=== PATIENT | male | born 1950 | race Caucasian/White ===

== ENCOUNTER → 2017-05-19 | Outpatient (CLI) | payer MEDICARE ==
[~2017-05-19] MED LIST: DICY10CA3 PO; HYDR25TA9 PO; LOSA100T6 PO; OMEP20TA8 PO; PRAV40TA2 PO
--- NOTE | 2017-05-19 07:34 | RAD ---
Indication: Abdominal pain. The pancreas is unremarkable. The IVC is unremarkable. Aorta is nonaneurysmal. The liver does contain several cysts. A cyst in the left lobe is approximately 2.8 cm in diameter. Cyst in the right lobe is 4.3 cm in diameter. The gallbladder is without stones or sludge. No wall thickening or pericholecystic fluid is identified. No biliary ductal dilatation is seen. The spleen is normal in size. The right and left kidneys are unremarkable. There is no ascites. Evaluation of the left lower quadrant at the area of the patient's pain was also performed. There is a small fluid collection in the left lower quadrant region measuring 2.6 x 1.6 x 1.0 cm, indeterminate. Impression: 1. Hepatic cysts. 2. Small nonspecific fluid collection in the left lower quadrant. No other significant abnormality is seen.
== END | disposition home or self-care (01) ==
LOC: US 06:21
PROVIDERS: ATTEND Family Medicine
DX: K76.89 Other specified diseases of liver (principal)
CPT/HCPCS: 76700

== ENCOUNTER → 2017-05-21 | Outpatient (CLI) | payer MEDICARE ==
[~2017-05-21] MED LIST changes: +CONTRAST GIVEN MC PRN; +IOHEXOL 240 MG/ML 50ML VIAL. PO ONE; +IOHEXOL 300 MG/ML 100ML VIAL. IV ONE
--- NOTE | 2017-05-21 13:15 | KCIC ---
CT abdomen and pelvis with contrast Indication: . Left lower quadrant pain. Left groin pain. Diverticulitis. Hernia. Symptoms for 2 weeks.. Technique: Intravenous contrast and oral contrast are administered. Comparison:None available Exposure: One or more of the following individualized dose reduction techniques were utilized for this examination: 1. Automated exposure control 2. Adjustment of the mA and/or kV according to patient size 3. Use of iterative reconstruction technique. FINDINGS: Lower thorax: Partially visualized tiny noncalcified nodule in the anterior right lung base measures 3 mm. Pneumoperitoneum:No gross pneumoperitoneum. Liver: Low-density lesion identified in the upper right lobe measures 4.0 cm diameter and measures water density compatible with a cyst. Smaller cysts identified in the left lobe. Several additional tiny lesions, too small to characterize. Spleen: Unremarkable Pancreas: Unremarkable Kidneys:Unremarkable Adrenals:No evidence of mass. Gallbladder: No calcified stone Aorta: Abdominal aorta is nonaneurysmal Lymph nodes: No significant enlargement GI tract: Very small hiatal hernia. No bowel obstruction. Scattered small colonic diverticula. No evidence of acute pericolonic inflammatory type change. Appendix:Visualized, appears within normal limits. Ascites: No gross ascites. The prostate gland is enlarged, measuring about 6.1 cm transverse. This indents the posteroinferior urinary bladder. Bones: Multilevel spondylosis mild/moderate spinal stenosis noted in the lumbar spine. Mild right convexity lumbar scoliosis. Primary hip osteoarthritis. There is a small subcutaneous nodule in the posterior right back, just to the right of midline, located just deep to the skin layer. This measures 22 mm diameter. This is located at the L1-2 level. There is a small fat-containing left inguinal hernia. IMPRESSION: 1. Multiple liver lesions, most likely cysts. 2. No evidence of acute abnormality in the abdomen or pelvis. 3. Prostatomegaly. 4. Lumbar spondylosis and stenosis. 5. Small nonspecific superficial subcutaneous mass in the back, just to the right of midline. This could represent a sebaceous cyst. Electronically signed by: Jeff Hart MD (05/21/2017 1:12 PM)
== END | disposition home or self-care (01) ==
LOC: KCIC CT 09:12
PROVIDERS: ATTEND Physician Assistant
DX: K76.9 Liver disease, unspecified (principal); N40.0 Benign prostatic hyperplasia without lower urinary tract symptoms; K46.9 Unspecified abdominal hernia without obstruction or gangrene; R91.1 Solitary pulmonary nodule
CPT/HCPCS: 74177; 82565; Q9966; Q9967

== ENCOUNTER 2017-06-07 06:24 | Day surgery (SDC) | payer MEDICARE ==
[~2017-06-07] VITALS: Ht 190.5 cm; Wt 90.7 kg
[~2017-06-07 06:24] MED LIST changes: +ASPI-630 PO; -CONTRAST GIVEN MC PRN; +DICL50TA4 PO; +GLUC1CAP48 PO; -IOHEXOL 240 MG/ML 50ML VIAL. PO ONE; -IOHEXOL 300 MG/ML 100ML VIAL. IV ONE; +MULT1TAB52 PO; +OMEG1CAP27 PO; +POLY17PO29 PO
[2017-06-07] MEDS ORDERED: PROCHLORPERAZINE 10 MG/2 ML VIAL. IV PRN (07:00)
[2017-06-07] MEDS ORDERED: IV RINGERS,LACTATED 1000ML 1,000 ML IV SCH (07:00)
[2017-06-07] MEDS ORDERED: HYDROmorphone 2 MG/ML VIAL IV PRN (07:00)
[2017-06-07] MEDS ORDERED: MORPHINE SULFATE 2 MG/ML DISP.SYRIN. IV PRN (07:00)
[2017-06-07] MEDS ORDERED: LIDOCAINE 1% 1 ML SYRINGE. ID PRN (07:00)
[2017-06-07] MEDS ORDERED: fentaNYL PF VIAL 100 MCG/2 ML VIAL IV PRN ×2 (07:00)
[2017-06-07] MEDS ORDERED: ONDANSETRON PF 4 MG/2 ML VIAL. IV PRN (07:00)
[2017-06-07] MEDS ORDERED: fentaNYL PF VIAL 100 MCG/2 ML VIAL ONE (07:18)
[2017-06-07] MEDS ORDERED: ROCURONIUM 50 MG/5 ML VIAL. ONE (07:18)
[2017-06-07] MEDS ORDERED: DEXAMETHASONE SOD PHOS 20 MG/5 ML VIAL. ONE (07:18)
[2017-06-07] MEDS ORDERED: PROPOFOL 20 ML IV ONE ×2 (07:18→08:55)
[2017-06-07] MEDS ORDERED: LIDOCAINE 2% PF Vial for OR 5 ML VIAL. ONE (07:18)
[2017-06-07] MEDS ORDERED: BUPIVACAINE-EPI 0.25%-1:200000 50 ML VIAL. ONE (07:32)
[2017-06-07] MEDS ORDERED: MIDAZOLAM HCL/PF 2 MG/2 ML VIAL. ONE (07:55)
[2017-06-07] MEDS ORDERED: ONDANSETRON PF 4 MG/2 ML VIAL. ONE (08:32)
[2017-06-07] MEDS ORDERED: GLYCOPYRROLATE 1 MG/5 ML VIAL. ONE (08:33)
[2017-06-07] MEDS ORDERED: NEOSTIGMINE METHYLSULFATE 5 MG/5 ML SYRINGE. ONE (08:33)
[2017-06-07] MEDS ORDERED: DESFLURANE 61 TO 120 MINUTES IH ONE (08:36)
[2017-06-07] MEDS ORDERED: KETOROLAC 30 MG/ML INJ FOR OR. INJ ONE (08:44)
[2017-06-07] MEDS ORDERED: ePHEDrine PF IN SALINE 50 MG/5 ML DISP.SYRIN IV ONE (08:47)
--- NOTE | 2017-06-07 08:56 | PDOC4 ---
Operative Note Operative Note Date: 06/07/2017 Preoperative diagnosis: Left inguinal hernia Postoperative diagnosis: Same Procedure: Robotic-assisted laparoscopic left inguinal hernia repair with mesh Surgeon: Milton Description: Patient is a 66-year-old male with complaints of left groin bulge with pain, procedure of robotic-assisted laparoscopic left inguinal hernia repair with mesh was explained to the patient detail all risks benefits were also discussed including bleeding infection injury to intra-abdominal contents possibly necessitating further or open operations. Patient seemed understanding table verbal and written consent had procedure performed. Patient was taken to the operating room placed in the supine position general anesthesia was initiated once patient was sleeping and intubated he was then placed in low lithotomy positioning his abdomen was prepped and draped usual sterile fashion using ChloraPrep. Area at the umbilicus was injected with quarter percent Marcaine with epinephrine and a small incision was made left blade scalpel. A varies needle was placed and a pneumoperitoneum was achieved. A 8 mm da Joao port was then placed and a camera placed within the abdomen which was inspected , no other abnormalities were noted other than a left inguinal hernia. At this point 2 more 8 mm ports were placed under direct visualization one in the left mid abdomen and one in the right mid abdomen. At this point the dementia robot was brought in and docked to the ports. The surgeon went to the robotic console using a grasper and Endo Karey scissors the peritoneum over the left groin was incised and a propagated as the peritoneum was bluntly and sharply dissected off of the abdominal wall the hernia sac was then reduced. Using program mesh mesh was then placed over the hernia defect on the floor of the groin area over in the defect the peritoneum was then closed over the mesh using a running V lock suture. Once this was complete the ports were undocked and the da Joao robot removed. Incisions at the port sites closed with 40 septic Monocryl Mastisol Steri-Strips and Band-Aids were applied as dressing. Patient was awakened and extubated in the operating room taken to recovery in stable condition all sponge and instrument counts listed as correct. Estimate blood loss 10 mL MASON VOGEL MD Jun 07, 2017 08:56
--- NOTE | 2017-06-07 09:10 | DISCH ---
DISCHARGE INSTRUCTIONS Condition on Discharge Condition on Discharge: Stable Activity After Discharge Activity Instructions for Disc: Avoid exertion Other activity instructions: No lifting >20lbs for 2 weeks Diet after Discharge Diet after Discharge: Regular Wound Incision Care Other wound/incision instructi: May shower in 24 hours Contacting the after DC Call your doctor for: If your condition worsens Follow-Up Follow up with: Dr Vogel in 2 weeks MASON VOGEL MD Jun 07, 2017 09:10
[2017-06-07] MEDS ORDERED: OXYC-323 PO (09:34)
[2017-06-07] MEDS ORDERED: oxyCODONE/APAP 5/325 1 TAB TABLET PO PRN (09:45)
[2017-06-07 10:10] VITALS: BP 175/77
== END 2017-06-07 10:30 | disposition home or self-care (01) ==
LOC: SURG 06:24
PROVIDERS: ATTEND Surgery
DX: K40.90 Unilateral inguinal hernia, without obstruction or gangrene, not specified as recurrent (principal); E78.00 Pure hypercholesterolemia, unspecified; F17.200 Nicotine dependence, unspecified, uncomplicated; I10 Essential (primary) hypertension; K21.9 Gastro-esophageal reflux disease without esophagitis; M19.019 Primary osteoarthritis, unspecified shoulder; Z72.89 Other problems related to lifestyle; Z88.2 Allergy status to sulfonamides
CPT/HCPCS: 49650; C1781; J1100; J1885; J2001; J2250; J2405; J2704; J2710; J3010; J3490; J7120

== ENCOUNTER → 2017-12-24 | Outpatient (CLI) | payer MEDICARE | END | disposition home or self-care (01) | LOC: ECHO 07:26 | DX: I49.3 Ventricular premature depolarization (principal); I07.1 Rheumatic tricuspid insufficiency; I10 Essential (primary) hypertension | CPT/HCPCS: 78452; 93017; 93306; 96374; 96376; A9500 ==

== ENCOUNTER → 2019-10-27 | Outpatient (CLI) | payer MEDICARE ==
[~2019-10-27] MED LIST changes: +HYDR-2145 PO; -HYDR25TA9 PO; +LOSA100T14 PO; -LOSA100T6 PO; +OXYC1TAB15 PO
--- NOTE | 2019-10-27 10:47 | CARD ---
MR#: [id number] Date of Study: 10/27/2019 Ordering Physician: JUJU FLOYD, Referring Physician: JUJU FLOYD, Tech: Margy Muñiz [facility] APPROVED REPORT EXAM: Two-dimensional and M-mode echocardiogram with Doppler and color Doppler. Other Information Quality : Good Rhythm : PVC's INDICATION Arrhythmia RISK FACTORS Hypertension Hyperlipidemia 2D DIMENSIONS RVDd3.0 (2.9-3.5cm)Left Atrium(2D)3.3 (1.6-4.0cm) IVSd0.9 (0.7-1.1cm)Aortic Root(2D)2.9 (2.0-3.7cm) LVDd5.1 (3.9-5.9cm)LVOT Diameter2.1 (1.8-2.4cm) PWd0.9 (0.7-1.1cm)LVDs3.1 (2.5-4.0cm) FS (%) 38.7 %SV85.4 ml LVEF(%)60.0 (>50%) Aortic Valve AoV Peak Chip.142.1cm/sAoV VTI27.8cm AO Peak GR.8.1mmHgLVOT Peak Chip.101.8cm/s AO Mean GR.4mmHgAVA (VMAX)2.52cm2 AI P 1/2 [id number] Mitral Valve MV E Gnwmwzuv36.6cm/sMV DECEL [id number] MV A Tdvakcmq43.4cm/sE/A Ratio0.8 Tricuspid Valve TR P. Zoefurfm756ba/sRAP VDRJVPDG8zuRj TR Peak Gr.43szIdDNFU16bwIi Pulmonary Vein S1 Rjyemage35.9cm/sD2 Uymfvvll50.8cm/s LEFT VENTRICLE The left ventricle is normal size. There is normal left ventricular wall thickness. The left ventricu lar systolic function is normal. The Ejection Fraction is 55-60%. There is normal LV segmental wall m otion. Transmitral Doppler flow pattern is Grade I-abnormal relaxation pattern. RIGHT VENTRICLE The right ventricle is normal size. The right ventricular systolic function is normal. ATRIA The left atrium size is normal. The right atrium size is normal. The interatrial septum is intact wit h no evidence for an atrial septal defect or patent foramen ovale as noted on 2-D or Doppler imaging. AORTIC VALVE The aortic valve is mildly thickened but opens well. Doppler and Color Flow revealed trace aortic reg urgitation. There is no significant aortic valvular stenosis. MITRAL VALVE The mitral valve is normal in structure and function. There is no evidence of mitral valve prolapse. There is no mitral valve stenosis. Doppler and Color-flow revealed trace mitral regurgitation. TRICUSPID VALVE The tricuspid valve is normal in structure and function. Doppler and Color Flow revealed mild tricusp id regurgitation. There is mild pulmonary hypertension. The PA pressure was estimated at 37 mmHg. The re is no tricuspid valve stenosis. PULMONIC VALVE The pulmonary valve is normal in structure and function. Doppler and Color Flow revealed mild pulmoni c valvular regurgitation. There is no pulmonic valvular stenosis. GREAT VESSELS The aortic root is normal in size. The ascending aorta is not well seen. The IVC is normal in size an d collapses >50% with inspiration. PERICARDIAL EFFUSION There is no evidence of significant pericardial effusion. Critical Notification Critical Value: No <Conclusion> The left ventricular systolic function is normal. The Ejection Fraction is 55-60%. There is normal LV segmental wall motion. Transmitral Doppler flow pattern is Grade I-abnormal relaxation pattern. Trace mitral regurgitation. Mild tricuspid regurgitation. The PA pressure was estimated at 37 mmHg. There is no evidence of significant pericardial effusion. Signed by : Damion Sebastian, Electronically Approved : 10/27/2019 10:47:21
== END | disposition home or self-care (01) ==
LOC: ECHO 09:38
PROVIDERS: ATTEND Internal Medicine Cardiovascular Disease
DX: I08.8 Other rheumatic multiple valve diseases (principal); I49.3 Ventricular premature depolarization; I27.20 Pulmonary hypertension, unspecified; E78.5 Hyperlipidemia, unspecified; I10 Essential (primary) hypertension
CPT/HCPCS: 93306

== ENCOUNTER → 2021-05-09 | Outpatient (CLI) | payer MEDICARE ==
[~2021-05-09] MED LIST changes: +MULT-445 PO; -MULT1TAB52 PO
--- NOTE | 2021-05-09 17:53 | CARD ---
MR#: [id number] Date of Study: 05/09/2021 Ordering Physician: JUJU FLOYD, Referring Physician: JUJU FLOYD, Tech: Leonor Womack [facility] APPROVED REPORT EXAM: Two-dimensional and M-mode echocardiogram with Doppler and color Doppler. Other Information Quality : Average Rhythm : NSR INDICATION Palpitations RISK FACTORS Hypertension 2D DIMENSIONS RVDd3.4 (2.9-3.5cm)Left Atrium(2D)3.3 (1.6-4.0cm) IVSd0.9 (0.7-1.1cm)Aortic Root(2D)3.3 (2.0-3.7cm) LVDd5.4 (3.9-5.9cm)LVOT Diameter2.1 (1.8-2.4cm) PWd0.9 (0.7-1.1cm)LVDs3.0 (2.5-4.0cm) FS (%) 44.2 %SV104.8 ml Aortic Valve AoV Peak Chip.138.6cm/sAoV VTI37.5cm AO Peak GR.7.7mmHgLVOT Peak Chip.84.7cm/s AO Mean GR.4mmHgAVA (VMAX)2.07cm2 Mitral Valve MV E Sgahlucv42.1cm/sMV DECEL HESL083mo MV A Kkobkdmz69.2cm/sE/A Ratio0.9 Pulmonary Valve PV Peak Vqfsxjfa344.1cm/s Tricuspid Valve TR P. Zktqbkhk644pp/sTR Peak Gr.31mmHg Pulmonary Vein S1 Ldqcoxhi61.6cm/sD2 Knkhrcsj00.7cm/s PVa wuwoqmtz501ogil LEFT VENTRICLE The left ventricle is normal size. There is normal left ventricular wall thickness. The left ventricu lar systolic function is low normal. LV ejection fraction is estimated at 50%. There is normal LV seg mental wall motion. Transmitral Doppler flow pattern is Grade I-abnormal relaxation pattern. RIGHT VENTRICLE The right ventricle is normal size. There is normal right ventricular wall thickness. The right ventr icular systolic function is normal. ATRIA The left atrium size is normal. The right atrium size is normal. The interatrial septum is intact wit h no evidence for an atrial septal defect or patent foramen ovale as noted on 2-D or Doppler imaging. AORTIC VALVE The aortic valve is normal in structure and function. Doppler and Color Flow revealed mild aortic reg urgitation. There is no significant aortic valvular stenosis. MITRAL VALVE The mitral valve is normal in structure and function. There is no evidence of mitral valve prolapse. There is no mitral valve stenosis. Doppler and Color-flow revealed trace mitral regurgitation. TRICUSPID VALVE The tricuspid valve is normal in structure and function. Doppler and Color Flow revealed mild tricusp id regurgitation. There is no tricuspid valve stenosis. PULMONIC VALVE The pulmonary valve is normal in structure and function. Doppler and Color Flow revealed moderate pul jose luis valvular regurgitation. GREAT VESSELS The aortic root is normal in size. The ascending aorta is normal in size. The IVC is normal in size a nd collapses >50% with inspiration. PERICARDIAL EFFUSION There is no evidence of significant pericardial effusion. Critical Notification Critical Value: No <Conclusion> The left ventricle is normal size. The left ventricular systolic function is low normal. LV ejection fraction is estimated at 50%. There is normal left ventricular wall thickness. Doppler and Color Flow revealed mild aortic regurgitation. There is no significant aortic valvular stenosis. Doppler and Color-flow revealed trace mitral regurgitation. Doppler and Color Flow revealed mild tricuspid regurgitation. Signed by : Jordi Villatoro MD Electronically Approved : 05/09/2021 17:52:43
== END ==
LOC: ECHO 08:23
PROVIDERS: ATTEND Internal Medicine Cardiovascular Disease
DX: I08.8 Other rheumatic multiple valve diseases (principal); I49.3 Ventricular premature depolarization
CPT/HCPCS: 93306